=== PATIENT | male | born 1975 ===

== ENCOUNTER → 2021-05-31 08:38 | Outpatient (CLI) | payer OTHER, SELFPAY ==
[2021-05-31 20:11] LABS: COVID19 - ORCAS (NP or Nasal) Negative (Negative)
== END ==
PROVIDERS: Visit Provider Family Medicine
DX: Z20.822 Contact with and (suspected) exposure to COVID-19 (principal)
CPT/HCPCS: U0003

== ENCOUNTER → 2022-04-02 09:37 | Outpatient (CLI) | payer OTHER, MEDICAID, SELFPAY ==
--- NOTE | 2022-04-02 09:39 | DI.US.S_ITS ---
PROCEDURE: US SCROTUM INDICATIONS: RIGHT TESTICULAR PAIN TECHNIQUE: Real-time scanning was performed of the scrotum and testicles, with image documentation. Color and pulse Doppler interrogation was performed of both testicles. COMPARISON: None. FINDINGS: Right: Testicle is normal in size at 4.2 x 2.1 x 3.1 cm, and homogenous in echotexture. Epididymis is normal in overall size and morphology. No hydrocele or varicoceles. 3 mm right epididymal cyst. Overlying scrotal skin is normal in thickness. Left: Testicle is normal in size at 3.5 x 2.1 x 3.6 cm, and homogeneous in echotexture. Epididymis is normal in overall size and morphology. No hydrocele or varicoceles. Overlying scrotal skin is normal in thickness. Doppler: Color and pulse Doppler demonstrate normal and symmetric arterial flow in both testicles. IMPRESSION: Incidental small right epididymal cyst. Otherwise unremarkable study. No evidence of testicular torsion, testicular mass, orchitis, or ependymitis. Dictated by: Marcos Key M.D. on 04/02/2022 at 13:00 Approved by: Marcos Key M.D. on 04/02/2022 at 13:01
== END ==
PROVIDERS: PCP Family Medicine; Referring Provider Family Medicine; Visit Provider Family Medicine
DX: N50.3 Cyst of epididymis (principal); N50.811 Right testicular pain
CPT/HCPCS: 76870

== ENCOUNTER → 2024-09-29 10:43 | Outpatient (CLI) | payer BC, SELFPAY ==
[2024-10-03 18:07] LABS: Ca oxalate dihydrate 50 % (.); Ca oxalate monohydr 50 % (.); Size 6x3 mm (.)
== END ==
PROVIDERS: PCP Family Medicine; Visit Provider Urology
DX: Z87.442 Personal history of urinary calculi (principal)
CPT/HCPCS: 81002; 82365